=== PATIENT | female | born 2000 | race Caucasian/White ===

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

== ENCOUNTER → 2020-02-16 | Outpatient (CLI) | payer BC ==
[~2020-02-16] MED LIST: IRON65TA PO; [UNRECOGNIZED DRUG - CODE] PO; birth control pill PO
--- NOTE | 2020-02-17 12:51 | REP ---
Examination Requested: Cookie Swallow Reason For Exam: Dysphasia The procedure was performed by SONYA Szymanski, under the direct supervision of Dr. Corea. The procedure was performed with Vicky Magdaleno from speech pathology present. 5 ml aliquots of thin, pudding, mixed fruit, soft food, and hard food consistency barium was administered. No penetration or aspiration was visualized during the course of the exam. The detailed report of this examination will be provided by speech pathology. 1.1 minutes of fluoroscopy time was utilized for this procedure. Reviewed by SONYA Lyon 02/17/2020 07:44 A Electronically Signed by Raudel Corea MD 02/17/2020 12:42 P
== END ==
LOC: M ST 13:43
PROVIDERS: ATTEND Registered Nurse
DX: R47.02 Dysphasia (principal); R10.13 Epigastric pain

== ENCOUNTER → 2020-07-04 | Outpatient (REF) | payer BC ==
[2020-07-06 14:09] LABS: ANTINUCLEAR ANTIBODIES DIRECT Negative (Negative)
== END ==
LOC: M LAB REF 16:35
PROVIDERS: ATTEND Nurse Practitioner Adult Health
DX: G43.811 Other migraine, intractable, with status migrainosus (principal)

== ENCOUNTER → 2020-08-04 | Outpatient (CLI) | payer BC ==
[~2020-08-04] MED LIST changes: +ISOVUE-370 76% 100ML VIAL As Ordered ONE
--- NOTE | 2020-08-04 12:37 | REP ---
INDICATION: CHEST PAIN ON BREATHING COMPARISON: None. TECHNIQUE: Axial contrast enhanced images from the thoracic inlet to the upper abdomen using pulmonary embolus technique with multiplanar re-formations. 75 ml Isovue 370 intravenous contrast material administered without complication. This CT examination was performed using the following dose reduction techniques: Automated exposure control, adjustment of mA and/or kv according to the patient's size, and use of iterative reconstruction technique. FINDINGS: Satisfactory enhancement of the pulmonary vasculature is achieved and no filling defects are identified to suggest pulmonary embolus. Further evaluation of the mediastinum demonstrates normal thoracic aorta, heart and pericardium. The bilateral lung dai are well aerated and clear without consolidation pleural effusion or pneumothorax. Tracheobronchial tree is patent. No nodule or mass lesion is identified. No adenopathy noted. Surrounding musculoskeletal structures intact IMPRESSION: No evidence for pulmonary embolus. No acute mediastinal or pleural parenchymal process. <Electronically signed by Hernandez Jefferson > 08/04/20 [id number]
== END ==
LOC: M RAD 12:10
PROVIDERS: ATTEND Nurse Practitioner Adult Health
DX: R07.1 Chest pain on breathing (principal); R00.0 Tachycardia, unspecified
CPT/HCPCS: 71275; Q9967

== ENCOUNTER → 2020-09-14 | Outpatient (CLI) | payer SELFPAY ==
[~2020-09-14] MED LIST changes: -ISOVUE-370 76% 100ML VIAL As Ordered ONE
== END ==
LOC: M LABSMTC 10:58
PROVIDERS: ATTEND Pediatrics
DX: Z20.822 Contact with and (suspected) exposure to COVID-19 (principal)

== ENCOUNTER → 2020-09-17 | Outpatient (REF) | payer SELFPAY | LOC: M LABSMTC 10:56 → EDSTATUS 11:05 | PROVIDERS: ATTEND Pediatrics | DX: Z20.822 Contact with and (suspected) exposure to COVID-19 (principal) ==

== ENCOUNTER → 2020-11-15 | Outpatient (REF) | LOC: M LABSMTC 09:32 | PROVIDERS: ATTEND Pediatrics | DX: Z20.822 Contact with and (suspected) exposure to COVID-19 (principal) ==

== ENCOUNTER → 2020-12-29 | Outpatient (REF) | LOC: M LABSMTC 09:34 | PROVIDERS: ATTEND Pediatrics | DX: Z20.822 Contact with and (suspected) exposure to COVID-19 (principal) ==

== ENCOUNTER 2021-02-25 20:01 | Emergency (ER) | payer BC ==
[~2021-02-25] VITALS: Ht 154.9 cm; Wt 61.0 kg
[2021-02-25] MEDS ORDERED: TOPA1TAB PO (20:08)
[2021-02-25] MEDS ORDERED: PEPC40TA12 PO (20:08)
[2021-02-25 22:53] LABS: BASO % 0.5 % (0.0-1.0); EOS % 0.5 % (0.0-3.0); HEMATOCRIT 40.9 % (36.0-47.0); HEMOGLOBIN 13.5 g/dl (12.0-15.5); LYMPH # 3.3 10^3/uL (1.5-5.0); LYMPH % 45.6 % (24.0-44.0); MEAN CORPUSCULAR HEMOGLOBIN 30.9 pg (27.0-33.0); MEAN CORPUSCULAR VOLUME 93.6 fl (80.0-96.0); MONO # 0.4 10^3/uL (0.0-0.8); MONO % 5.5 % (2.0-8.0); NEUTROPHILS # 3.5 10^3/uL (1.5-8.5); NEUTROPHILS % 47.8 % (36.0-66.0); PLATELET COUNT, AUTOMATED 217 10^3/uL (150-450); RED BLOOD COUNT 4.37 10^6/uL (4.00-5.40); WHITE BLOOD COUNT 7.3 10^3/uL (4.0-10.0)
--- NOTE | 2021-02-25 23:01 | REPVR ---
PROCEDURE INFORMATION: Exam: US Non-obstetric Pelvis; Complete (transabdominal and transvaginal) Exam date and time: 02/25/21 (9:52pm) Age: 20 years old Clinical indication: Lower pelvic pain TECHNIQUE: Imaging protocol: Transabdominal pelvic non-obstetric ultrasound. Complete examination. Real time ultrasound with image documentation. COMPARISON: No relevant prior studies available FINDINGS: The LMP is reported to be: 02/21/21 The uterus is anteverted, measuring 7.2 x 2.6 x 4.6 cm in dimensions. No uterine mass is seen. The endometrium is thin (2 mm thickness). The right ovary measures 3.3 x 2.0 x 2.1 cm in size. Small right ovarian follicles. The left ovary measures 2.1 x 1.3 x 1.4 cm in size. There is no evidence of ovarian torsion on Doppler evaluation. No free pelvic fluid is seen. No solid adnexal masses. IMPRESSION: No acute findings. No solid masses. No free fluid. The ovaries are unremarkable, with no evidence of torsion. Electronically signed by: Torrie Hirsch On 02/25/2021 23:01:07 PM
[2021-02-25 23:18] LABS: ALBUMIN 4.1 GM/DL (3.2-5.2); ALT/SGPT 22 U/L (12-78); BILIRUBIN,DIRECT 0.1 MG/DL (0.0-0.2); BILIRUBIN,TOTAL 0.3 MG/DL (0.2-1.0); BLOOD UREA NITROGEN 12 MG/DL (7-18); CALCIUM LEVEL 9.2 MG/DL (8.5-10.1); CARBON DIOXIDE LEVEL 24 MEQ/L (21-32); CHLORIDE LEVEL 109 MEQ/L (98-107); CREATININE FOR GFR 0.66 MG/DL (0.55-1.30); GLUCOSE, FASTING 77 MG/DL (70-100); LIPASE 130 U/L (73-393); POTASSIUM SERUM 3.8 MEQ/L (3.5-5.1); SODIUM LEVEL 141 MEQ/L (136-145); TOTAL PROTEIN 7.8 GM/DL (6.4-8.2)
[2021-02-26 00:04] VITALS: BP 114/76
--- NOTE | 2021-02-26 00:50 | REPVR ---
PROCEDURE INFORMATION: Exam: XR Abdomen Exam date and time: 02/25/2021 11:18 PM Age: 20 years old Clinical indication: Other: Lower abd pain TECHNIQUE: Imaging protocol: XR of the abdomen. Views: Frontal supine view of the abdomen. 1 View. COMPARISON: CT ANGIO CHEST 08/04/2020 12:35 PM FINDINGS: Gastrointestinal tract: Nonobstructive bowel gas pattern.. No bowel dilation. No organomegaly or mass effect. Bones/joints: Unremarkable. Other findings: A navel piercing is noted. IMPRESSION: No acute findings. Electronically signed by: Vivek Narvaez On 02/26/2021 00:49:58 AM
== END 2021-02-26 00:21 | disposition home or self-care (01) ==
LOC: M ED 20:01
DX: K59.00 Constipation, unspecified (principal); K21.9 Gastro-esophageal reflux disease without esophagitis; G43.909 Migraine, unspecified, not intractable, without status migrainosus; Z79.899 Other long term (current) drug therapy; Z79.3 Long term (current) use of hormonal contraceptives

== ENCOUNTER 2021-06-26 06:32 | Outpatient (RCR) ==
[~2021-06-26 06:32] MED LIST changes: +PEPC40TA12 PO; +TOPA1TAB PO
== END 2021-06-26 15:00 | disposition home or self-care (01) ==
LOC: M EMP 06:32
PROVIDERS: ATTEND Pediatrics
DX: Z11.52 Encounter for screening for COVID-19 (principal)

== ENCOUNTER → 2022-02-14 | Outpatient (REF) | LOC: M LABSMTC 10:51 | PROVIDERS: ATTEND Family Medicine | DX: Z20.822 Contact with and (suspected) exposure to COVID-19 (principal) ==

== ENCOUNTER → 2022-05-07 | Outpatient (REF) | LOC: M LABSMTC 09:21 | PROVIDERS: ATTEND Family Medicine | DX: Z20.822 Contact with and (suspected) exposure to COVID-19 (principal) ==

== ENCOUNTER → 2022-12-20 | Outpatient (REF) | LOC: M EMP 09:23 | PROVIDERS: ATTEND Family Medicine | DX: Z11.52 Encounter for screening for COVID-19 (principal) ==

== ENCOUNTER → 2023-07-01 | Outpatient (REF) | payer BC | LOC: M SFHCWAGY 13:00 | PROVIDERS: ATTEND Nurse Practitioner Family | DX: Z12.4 Encounter for screening for malignant neoplasm of cervix (principal) ==

== ENCOUNTER → 2024-02-27 | Outpatient (CLI) | payer BC ==
[2024-02-27 17:24] LABS: HEMATOCRIT 36.1 % (36.0-47.0); MEAN CORPUSCULAR HEMOGLOBIN 31.6 pg (27.0-33.0); MEAN CORPUSCULAR HGB CONC 33.2 g/dl (32.0-36.5); PLATELET COUNT, AUTOMATED 219 10^3/uL (150-450); WHITE BLOOD COUNT 10.5 10^3/uL (4.0-10.0)
[2024-02-27 18:02] LABS: HIV 1&2 SCREEN NEGATIVE (NEGATIVE)
[2024-02-27 18:11] LABS: HEPATITIS C VIRUS ABY INDEX < 0.02 INDEX (<0.8)
[2024-02-27 19:09] LABS: GC DNA AMPLIFICATION NEGATIVE (NEGATIVE)
== END ==
LOC: M PLALAB 15:18
PROVIDERS: ATTEND Advanced Practice Midwife
DX: Z34.01 Encounter for supervision of normal first pregnancy, first trimester (principal)

== ENCOUNTER → 2024-04-02 | Outpatient (CLI) | payer BC | LOC: M WHC 08:13 | PROVIDERS: ATTEND Obstetrics & Gynecology | DX: Z53.9 Procedure and treatment not carried out, unspecified reason (principal) ==

== ENCOUNTER → 2024-05-18 | Outpatient (CLI) | payer BC | LOC: M RAD 14:19 | PROVIDERS: ATTEND Obstetrics & Gynecology | DX: Z34.82 Encounter for supervision of other normal pregnancy, second trimester (principal); Z3A.20 20 weeks gestation of pregnancy ==

== ENCOUNTER → 2024-06-01 | Outpatient (REF) | payer BC | LOC: M PLALAB 11:00 | PROVIDERS: ATTEND Obstetrics & Gynecology | DX: Z34.02 Encounter for supervision of normal first pregnancy, second trimester (principal); Z53.9 Procedure and treatment not carried out, unspecified reason ==

== ENCOUNTER → 2024-06-01 | Outpatient (CLI) | payer BC | LOC: M PLALAB 11:08 | PROVIDERS: ATTEND Obstetrics & Gynecology | DX: Z34.02 Encounter for supervision of normal first pregnancy, second trimester (principal) ==

== ENCOUNTER → 2024-06-16 | Outpatient (CLI) | payer BC ==
[2024-06-16 12:35] LABS: GC DNA AMPLIFICATION NEGATIVE (NEGATIVE)
[2024-06-16 14:18] LABS: GLUCOSE CHALLENGE TEST 1 HOUR 109 MG/DL (LESS THAN 140)
[2024-06-16 14:19] LABS: HEMATOCRIT 35.5 % (36.0-47.0); HEMOGLOBIN 11.6 g/dl (12.0-15.5); MEAN CORPUSCULAR HGB CONC 32.7 g/dl (32.0-36.5); MEAN CORPUSCULAR VOLUME 98.1 fl (80.0-96.0); PLATELET COUNT, AUTOMATED 197 10^3/uL (150-450); RED BLOOD COUNT 3.62 10^6/uL (4.00-5.40); WHITE BLOOD COUNT 9.5 10^3/uL (4.0-10.0)
[2024-06-16 14:53] LABS: HIV 1&2 SCREEN NEGATIVE (NEGATIVE)
[2024-06-16 15:01] LABS: HEPATITIS C VIRUS ABY INDEX 0.03 INDEX (<0.8)
== END ==
LOC: M PLALAB 09:07
PROVIDERS: ATTEND Obstetrics & Gynecology
DX: Z34.02 Encounter for supervision of normal first pregnancy, second trimester (principal)

== ENCOUNTER → 2024-06-29 | Outpatient (CLI) | payer BC | LOC: M RAD 09:20 | PROVIDERS: ATTEND Obstetrics & Gynecology | DX: Z34.02 Encounter for supervision of normal first pregnancy, second trimester (principal); Z3A.26 26 weeks gestation of pregnancy ==

== ENCOUNTER → 2024-09-03 | Outpatient (REF) | payer BC | LOC: M SFHCWAGY 12:35 | PROVIDERS: ATTEND Nurse Practitioner Family | DX: Z34.93 Encounter for supervision of normal pregnancy, unspecified, third trimester (principal); Z3A.35 35 weeks gestation of pregnancy ==

== ENCOUNTER 2024-10-01 14:30 | Inpatient (IN) | payer BC ==
[2024-10-01] VITALS (25 sets, daily range): BP systolic 112–158; BP diastolic 53–91
[~2024-10-01] VITALS: Ht 154.9 cm; Wt 89.0 kg
[2024-10-01] MEDS ORDERED: PRENTAB9 PO (14:44)
[2024-10-01] MEDS ORDERED: ROLA1CHW2 PO (14:44)
[2024-10-01] MEDS ORDERED: HOME MED LIST COMPLETE! XX SCH (14:45)
[2024-10-01] MEDS: LACTATED RINGER'S 1000 ML IV STA (15:29)
[2024-10-01] MEDS: PENICILLIN G POTASSIUM 5 MU IV 5 MU in DEXTROSE 5% (D5W) MINI-BAG PLU 100 ML IV STA (15:29)
[2024-10-01 15:46] LABS: BASO % 0.2 % (0.0-1.0); EOS % 0.1 % (0.0-3.0); HEMATOCRIT 35.7 % (36.0-47.0); HEMOGLOBIN 12.3 g/dl (12.0-15.5); LYMPH # 1.6 10^3/uL (1.5-5.0); LYMPH % 12.3 % (24.0-44.0); MEAN CORPUSCULAR HEMOGLOBIN 31.9 pg (27.0-33.0); MEAN CORPUSCULAR HGB CONC 34.5 g/dl (32.0-36.5); MEAN CORPUSCULAR VOLUME 92.5 fl (80.0-96.0); MONO # 0.6 10^3/uL (0.0-0.8); NEUTROPHILS # 10.4 10^3/uL (1.5-8.5); NEUTROPHILS % 81.9 % (36.0-66.0); PLATELET COUNT, AUTOMATED 167 10^3/uL (150-450); RED BLOOD COUNT 3.86 10^6/uL (4.00-5.40); WHITE BLOOD COUNT 12.6 10^3/uL (4.0-10.0)
[2024-10-01] MEDS ORDERED: CARBOPROST TROMETHAMINE 250 MCG/ML AMP IM PRN (16:10)
[2024-10-01] MEDS ORDERED: METHYLERGONOVINE MALEATE 0.2MG/ML 1ML VIAL IM PRN (16:10)
[2024-10-01] MEDS ORDERED: TRANEXAMIC ACID INJection 1,000 MG in NS 100 ML IV PRN (16:10)
[2024-10-01] MEDS ORDERED: OXYTOCIN INJ 10UNITS/ML 1ML VIAL IM PRN (16:10)
[2024-10-01] MEDS ORDERED: LIDOCAINE 1% MDV 20ML VIAL INFIL PRN (16:10)
[2024-10-01] MEDS ORDERED: OXYTOCIN DRIP 30 UNITS in IV 1 EA IV PRN (16:10)
[2024-10-01] MEDS ORDERED: ONDANSETRON 4MG 2ML VIAL IV PRN (16:15)
[2024-10-01] MEDS ORDERED: EPIDURAL/PCA KEYS XX PRN (16:15)
[2024-10-01] MEDS ORDERED: ePHEDrine SULFATE 25 MG/5 ML(5MG/ML) SYRINGE IVP PRN (16:15)
[2024-10-01] MEDS ORDERED: LR 500 ML IV PRN (16:15)
[2024-10-01] MEDS ORDERED: diphenhydrAMINE 50MG/ML VIAL IV PRN (16:15)
[2024-10-01] MEDS ORDERED: NALOXONE INJ 0.4MG/1ML VIAL IV PRN (16:15)
[2024-10-01] MEDS: LR 1,000 ML IV SCH (16:42)
[2024-10-01 16:43] LABS: HIV 1&2 SCREEN NEGATIVE (NEGATIVE)
[2024-10-01] MEDS: FENTANYL/ROPIVACAINE/NACL BAG 100 ML EPIDURAL SCH (16:43)
[2024-10-01 16:51] LABS: HEPATITIS C VIRUS ABY INDEX 0.03 INDEX (<0.8)
[2024-10-01] MEDS: OXYTOCIN INJ 10UNITS/ML 1ML VIAL IV PRN (19:05)
[2024-10-01] MEDS: OXYTOCIN DRIP 30 UNITS in IV 1 EA IV PRN (19:05)
[2024-10-01] MEDS: PEN G POT 3,000,000 UNIT/50 ML 3,000,000 UNIT in IV 1 EA IV SCH (19:25)
[2024-10-01] MEDS ORDERED: OXYTOCIN DRIP 30 UNITS in IV 1 EA IV SCH (21:15)
[2024-10-01] MEDS: OXYTOCIN INJ 10UNITS/ML 1ML VIAL IV ONE (23:00)
[2024-10-01 23:09] LABS: CORD GAS ABE V -2.1; CORD GAS HCO3 V 22.7 MMOL/L; CORD GAS O2 SAT V 86.1 %; CORD GAS PCO2 V 39.3 mmHg; CORD GAS PH V 7.379 UNITS; CORD GAS PO2 V 41.1 mmHg; CORD GAS SBC V 22.4 MMOL/L; CORD GAS TCO2 V 23.9 MMOL/L
[2024-10-01] MEDS ORDERED: IBUPROFEN 600MG TAB PO PRN (23:10)
[2024-10-01] MEDS ORDERED: RHOGAM 300MCG (1500IU) INJ IM SCH (23:10)
[2024-10-01] MEDS ORDERED: ACETAMINOPHEN 325 MG TAB PO PRN (23:10)
[2024-10-01] MEDS ORDERED: ANUSOL HC CREAM 30GM TOP PRN (23:10)
[2024-10-01] MEDS ORDERED: MOM 30ML SUSPENSION UDC PO PRN (23:10)
[2024-10-01 23:13] LABS: CORD GAS ABE A -3.4; CORD GAS HCO3 A 21.2 MMOL/L; CORD GAS O2 SAT A 83.5 %; CORD GAS PCO2 A 37.2 mmHg; CORD GAS PH A 7.374 UNITS; CORD GAS PO2 A 38.5 mmHg; CORD GAS SBC A 21.3 MMOL/L; CORD GAS TCO2 A 22.4 MMOL/L
[2024-10-01] MEDS: ACETAMINOPHEN 500 MG TAB PO PRN (23:39)
[2024-10-02] MEDS: OXYTOCIN DRIP 30 UNITS in IV 1 EA IV SCH (01:34)
[2024-10-02 02:00] VITALS: BP 126/74; O2SAT 97
[2024-10-02] MEDS: IBUPROFEN 800 MG TAB PO PRN (04:42)
[2024-10-02] MEDS: CALCIUM CARBONATE 500 MG CHEW U/D PO PRN (04:53)
[2024-10-02 05:59] VITALS: BP 110/68; O2SAT 97
[2024-10-02 06:47] LABS: HEMATOCRIT 34.2 % (36.0-47.0); HEMOGLOBIN 11.3 g/dl (12.0-15.5); MEAN CORPUSCULAR HEMOGLOBIN 31.3 pg (27.0-33.0); MEAN CORPUSCULAR VOLUME 94.7 fl (80.0-96.0); PLATELET COUNT, AUTOMATED 148 10^3/uL (150-450); RED BLOOD COUNT 3.61 10^6/uL (4.00-5.40); WHITE BLOOD COUNT 13.5 10^3/uL (4.0-10.0)
[2024-10-02] MEDS: DIBUCAINE 1% OINTMENT 30GM TOP PRN (08:09)
[2024-10-02] MEDS: PRENATAL VITAMINS CHEWABLE TABLET PO SCH (08:09)
[2024-10-02] MEDS: DOCUSATE SODIUM 100MG CAPSULE PO PRN (17:25)
[2024-10-02 17:52] VITALS: BP 118/70; O2SAT 98
[2024-10-03 02:00] VITALS: BP 116/68; O2SAT 97
[2024-10-03 05:41] VITALS: BP 114/79; O2SAT 98
[2024-10-03] MEDS: MEASLES,MUMPS,RUBELLA VACCINE INJ (MMR-II) SC.IMMUN ONE (09:00)
== END 2024-10-03 14:45 | disposition home or self-care (01) | DRG 560 ==
LOC: M LDI 14:30 → M OBS 10-02 01:45
PROVIDERS: ADMIT Obstetrics & Gynecology; ATTEND Obstetrics & Gynecology
PROC: 10E0XZZ Delivery of Products of Conception, External Approach (ICD-10-PCS; principal; 2024-10-01)
PROC: 10907ZC Drainage of Amniotic Fluid, Therapeutic from Products of Conception, Via Natural or Artificial Opening (ICD-10-PCS; 2024-10-01)
DX: O99.824 Streptococcus B carrier state complicating childbirth (principal); O69.81X0 Labor and delivery complicated by cord around neck, without compression, not applicable or unspecified; Z3A.39 39 weeks gestation of pregnancy; Z37.0 Single live birth

== ENCOUNTER → 2025-05-13 | Outpatient (REF) | payer BC ==
[~2025-05-13] MED LIST changes: +PRENTAB9 PO; +ROLA1CHW2 PO
== END ==
LOC: M LAB REF 14:21
PROVIDERS: ATTEND Nurse Practitioner Adult Health
DX: R94.6 Abnormal results of thyroid function studies (principal)

== ENCOUNTER → 2025-07-14 | Outpatient (REF) | payer BC | LOC: M SFHCWAGY 10:23 | PROVIDERS: ATTEND Advanced Practice Midwife | DX: Z12.4 Encounter for screening for malignant neoplasm of cervix (principal) ==